=== PATIENT | male | born 1990 ===

== ENCOUNTER → 2016-07-10 | Outpatient (CLI) | payer BC ==
--- NOTE | 2016-07-10 15:22 | CR ---
EXAMINATION: Right ankle HISTORY: Pain COMPARISON: None TECHNIQUE: 3 views FINDINGS/IMPRESSION: There is a tiny ossific density noted anterior to the tibiotalar joint, possibl y a small chip fracture. Otherwise the visualized osseous structures and joint spaces appear intact. Mineralization and ankle mortise appear intact.
== END ==
LOC: MW.CHORTHO 11:00
PROVIDERS: ATTEND Physician Assistant
DX: M25.571 Pain in right ankle and joints of right foot (principal); M25.871 Other specified joint disorders, right ankle and foot
CPT/HCPCS: 73610-26-RT; 73610-RT